=== PATIENT | female | born 1960 | race Caucasian/White ===

== ENCOUNTER 2021-07-21 01:00 | Day surgery (SDC) | payer BC, SELFPAY ==
[2021-07-05 14:09] VITALS: BMI 26.6
--- NOTE | 2021-07-20 13:07 | PM.HPGS ---
History of Present Illness History of Present Illness Consent: Risks, benefits, and alternatives have been discussed and questions answered. Patient agrees to proceed with procedure. Chief complaint: epigastric pain, diarrhea Narrative: Ellen Denson is a 61 year old female refer for colon cancer screening. She had a polyp removed 6 years ago . She has also been having epigastric pain recently. There is no particular pattern to it. She has had no vomiting or weight loss Review of Systems Review of Systems: All systems reviewed & are unremarkable except as noted in HPI and below PMFSH Past Medical History Medical History Wrist fracture, left Surgical History Surgical History H/O colonoscopy with polypectomy 2014, repeat in 5 years S/P ORIF (open reduction internal fixation) fracture L wrist 2016 Family History Family History Mother Family history of coronary artery disease Father Family history of heart disease in male family member before age 55 Patient's father is Gallbladder disease Social History Social History Social History: Single Smoking packs per day: 1 Smoking cigarettes per day: 20.0 Years smoked: 30 Smoking pack-years: 30.00 Smoking status: Former smoker Tobacco type: cigarettes Second hand tobacco smoke exposure: No Smoking end date: 09/17/11 Alcohol intake: current Alcohol use details: social Substance use: never Substance use type: does not use Living arrangements: alone Gender identity (if verbalized by the patient): Female Sexual Orientation (if Verbalized by the Patient): Straight or Heterosexual Spiritual care concerns: No Meds Home Medications and Allergies Home Medications Medication Instructions Recorded Confirmed Type No Home Medications 06/16/21 07/05/21 History Allergies Allergy/AdvReac Type Severity Reaction Status Date / Time No Known Allergies Allergy Unknown Verified 07/21/21 07:37 Exam Resp: Auscultation: clear to auscultation bilaterally Cardio: Rate: regular rate Rhythm: regular rhythm GI: GI Palp: Yes Soft to palpation and No Tenderness to palpation present (GI) Assessment and Plan Assessment and plan (1) Colon cancer screening: Code(s): Z12.11 - Encounter for screening for malignant neoplasm of colon Status: Acute Assessment and Plan: Colonoscopy with possible biopsy or polypectomy or cautery or injection of substances. (2) Epigastric pain: Code(s): R10.13 - Epigastric pain Status: Acute Assessment and Plan: EGD with possible biopsy or dilatation or cautery.
[2021-07-21 07:37] VITALS: BP 115/68; PULSE 71; RESP 18; TEMP 36.5; O2SAT 100
[2021-07-21] MEDS: LACTATED RINGERS 1,000 ML 150 ML IV CONT (07:49)
--- NOTE | 2021-07-21 08:04 | WPDANESEPPF ---
Anes - Initial Pre Proc Eval Procedure: Operation Date: 07/21/21 08:30 Proposed Procedures p Esophagogastroduodenoscopy & Colonoscopy - Elbert Fairchild MD Date/Time: 07/21/21 08:04 Surgeon: Elbert Fairchild MD Pre Op Diagnosis: epigastric pain, diarrhea Patient Data Age: 61 Gender: F Height: 1.65 m Weight: 74.4 kg Last Vital Signs Temp 36.5 C 07/21/21 07:37 Pulse 71 07/21/21 07:37 Resp 18 07/21/21 07:37 BP 115/68 07/21/21 07:37 Pulse Ox 100 07/21/21 07:37 Allergies Allergy/AdvReac Type Severity Reaction Status Date / Time No Known Allergies Allergy Unknown Verified 07/21/21 07:37 Home Medications Medication Instructions Recorded Confirmed Type No Home Medications 06/16/21 07/05/21 History Patient hx anesthesia problems: none Family hx anesthesia problems: none Results Review: All pre-operative results and documents have been reviewed as part of the pre-operative evaluation. [facility] Past Medical History Medical History (Updated 07/20/21 @ 13:08 by Elbert Fairchild MD) Wrist fracture, left Surgical History Surgical History (Updated 06/24/21 @ 12:49 by Josie Michelle MD) H/O colonoscopy with polypectomy 2014, repeat in 5 years S/P ORIF (open reduction internal fixation) fracture L wrist 2016 Family History Family History (Updated 06/16/21 @ 14:44 by Josie Michelle MD) Mother Family history of coronary artery disease Father Family history of heart disease in male family member before age 55 Patient's father is Gallbladder disease Social History Social History (Updated 06/16/21 @ 13:53 by Zoe Jonas) Social History: Single Smoking packs per day: 1 Smoking cigarettes per day: 20.0 Years smoked: 30 Smoking pack-years: 30.00 Smoking status: Former smoker Tobacco type: cigarettes Second hand tobacco smoke exposure: No Smoking end date: 09/17/11 Alcohol intake: current Alcohol use details: social Substance use: never Substance use type: does not use Living arrangements: alone Gender identity (if verbalized by the patient): Female Sexual Orientation (if Verbalized by the Patient): Straight or Heterosexual Spiritual care concerns: No Anes - Eval Final PreProcedure Day of Procedure 07/21/21 08:04 Patient weight: overweight Heart: regular rate and rhythm Lungs: clear to auscultation and normal air movement Airway: Mallampati scale class II Neurological: alert and oriented Last oral intake: >/= 8 hours ASA classification: II Emergent: no Anesthetic plan: proceed Anesthesia type and monitoring: general GIVS Results Review: All pre-operative results and documents have been reviewed as part of the pre-operative evaluation. Informed Consent: The patient's anesthetic plan and its attendant risks and benefits were discussed with the patient/family/POA. Questions were solicited and answers provided to the satisfaction of the patient/family/POA.
--- NOTE | 2021-07-21 08:47 | SUR.OPER ---
EGD START 823; END 827. COLONOSCOPY START 835; END 846.
[2021-07-21 08:53] VITALS: BP 88/50; PULSE 90; RESP 26; O2SAT 100
[2021-07-21 09:03] VITALS: BP 110/65; PULSE 86; RESP 27; O2SAT 100
[2021-07-21 09:13] VITALS: BP 109/69; PULSE 73; RESP 22; O2SAT 100
== END 2021-07-21 09:19 | disposition home or self-care (01) ==
PROVIDERS: PCP Family Medicine; Visit Provider Internal Medicine Gastroenterology
PROC: 0DJ08ZZ Inspection of Upper Intestinal Tract, Via Natural or Artificial Opening Endoscopic (ICD-10-PCS; CPT 43235; principal; 2021-07-21 08:30)
DX: Z12.11 Encounter for screening for malignant neoplasm of colon (principal); K57.30 Diverticulosis of large intestine without perforation or abscess without bleeding; Z86.010 Personal history of colon polyps; K21.9 Gastro-esophageal reflux disease without esophagitis; Z87.891 Personal history of nicotine dependence
CPT/HCPCS: 45378; 43239; 87081; 88305; J2704; J7120